=== PATIENT | male | born 2000 | race African-American/Black ===

== ENCOUNTER 2022-07-06 16:26 | Emergency (ER) | payer MEDICAID, OTHER ==
[2022-07-06] MEDS ORDERED: Lidocaine 1% (PF) 30 ML VIAL ONE (17:30)
== END 2022-07-06 17:57 | disposition home or self-care (01) ==
LOC: CSHERS 16:26
DX: K02.9 Dental caries, unspecified (principal)
CPT/HCPCS: 99282; J2001